=== PATIENT | male | born 1970 | race Caucasian/White ===

== ENCOUNTER 2023-02-14 07:17 | Outpatient (OUT) | payer BC, SELFPAY ==
[2023-02-14 07:39] LABS: Basophils Absolute Auto 0.1 10^3/uL (0.0-0.1); Basophils Percent Auto 1.4 % (0.2-2.0); Eosinophils Absolute Auto 0.6 10^3/uL (0.0-0.7); Eosinophils Percent Auto 7.4 % (0.9-7.0); Hematocrit 40.6 % (42.0-54.0); Hemoglobin 13.8 g/dL (14.0-18.0); Immature Granulocytes Abs Auto 0.02 10^3/uL (0.00-0.03); Immature Granulocytes Pct Auto 0.3 % (0.0-0.5); Lymphocytes Percent Auto 40.5 % (20.5-60.0); Mean Corpuscular Hemoglobin 30.9 pg (25.9-34.0); Mean Platelet Volume 10.4 fL (9.5-13.5); Monocytes Absolute Auto 0.6 10^3/uL (0.3-0.8); Monocytes Percent Auto 7.6 % (1.7-12.0); Neutrophils Absolute Auto 3.2 10^3/uL (1.4-6.5); Neutrophils Percent Auto 42.8 % (43.0-75.0); Platelet Count 189 10^3/uL (150-450); Red Blood Count 4.46 10^6/uL (4.70-6.10); Red Cell Distribution Width 12.4 % (11.0-15.0); White Blood Count 7.4 10^3/uL (4.0-11.0)
[2023-02-14 07:58] LABS: Alanine Aminotransferase 30 U/L (16-63); Albumin Globulin Ratio 1.1; Albumin Level 3.9 g/dL (3.4-5.0); Alkaline Phosphatase 79 U/L (46-116); Aspartate Amino Transferase 20 U/L (15-37); BUN Creatinine Ratio 14.5; Bilirubin Total 0.6 mg/dL (0.2-1.0); Calcium 9.6 mg/dL (8.5-10.1); Carbon Dioxide 27.3 mmol/L (21.0-32.0); Chloride 104 mmol/L (98-107); Cholesterol 215 mg/dL (<=200); Estimated GFR (African America >60 (>=60); Estimated GFR (Non-African Ame 57 (>=60); Globulin 3.7 g/dL; Glucose 92 mg/dL (74-106); HDL Cholesterol 36 mg/dL (40-60); Potassium 4.3 mmol/L (3.5-5.1); Sodium 140 mmol/L (136-145); Total Protein 7.6 g/dL (6.4-8.2); Triglycerides 367 mg/dL (<=150); VLDL CHOLESTEROL 73.4 mg/dL
[2023-02-16 07:08] LABS: QuantiFERON-TB Gold Plus Negative (Negative)
== END 2023-02-14 07:18 | disposition home or self-care (01) ==
LOC: LAB 07:22
PROVIDERS: PCP Family Medicine
DX: L40.0 Psoriasis vulgaris (principal)
CPT/HCPCS: 36415; 80053; 80061; 85025; 86480

== ENCOUNTER 2023-02-24 07:49 | Outpatient (OUT) | payer BC, SELFPAY ==
[2023-02-24 08:38] LABS: Anion Gap 10.5; BUN Creatinine Ratio 13.8; Calcium 8.5 mg/dL (8.5-10.1); Carbon Dioxide 26.8 mmol/L (21.0-32.0); Chloride 103 mmol/L (98-107); Estimated GFR (African America >60 (>=60); Estimated GFR (Non-African Ame >60 (>=60); Glucose 97 mg/dL (74-106); Potassium 4.3 mmol/L (3.5-5.1); Sodium 136 mmol/L (136-145)
== END 2023-02-24 07:50 | disposition home or self-care (01) ==
LOC: LAB 07:50
PROVIDERS: PCP Family Medicine; Visit Provider Family Medicine
DX: N28.9 Disorder of kidney and ureter, unspecified (principal)
CPT/HCPCS: 36415; 80048

== ENCOUNTER 2024-12-07 07:32 | Outpatient (OUT) | payer OTHER, SELFPAY ==
--- OUTSIDE RECORDS SUMMARY | 2024-04-25 05:33 | XMS_ITS ---
Author Organization [facility] in [place] Address [address] [place] [address] Care Team Providers Care Automatic Shirring Machine Operator Name Role Phone Silas Wright Primary Care Provider REASON FOR VISIT ear draining Medications Medication SIG (Take, Route, Frequency, Duration) Notes Start Date End Date Status Yzogrwlz-Ekrmyhokw-BU 3.5-75872-3 4 drops into affected ear Otic Three times a day 04/01/2024 Active Ciprofloxacin HCl 500 MG 1 tablet Orally every 12 hrs for 10 days 04/01/2024 Active Encounters Encounter Location Date Provider Diagnosis [address] [place] [address] 04/25/2024 Silas Wright Otitis externa H60.9 0 Assessments Encounter Date Diagnosis (ICD Code) Assessment Notes Treatment Notes Treatment Clinical Notes Section Notes 04/25/2024 Otitis externa (ICD-10 - H60.90) Plan Of Treatment Medication Medication Name Sig Start Date Stop Date Notes Xhfxzcpr-Cbgogdayj-PB 3.5-02351-0 4 drops into affected ear Otic Three times a day 04/01/2024 Ciprofloxacin HCl 500 MG 1 tablet Orally every 12 hrs for 10 days 04/01/2024 Progress Notes * Guy WILLS BDOB:1970 (53 yo M)Acc No.[id number]:04/25/2024 Patient: Guy CHAVES :1970 A ge:53 Y S ex:Male Address:[address] [address] * Refills Refill Wekfgqwj-Mvoskigrl-RF Suspension, 3.5-41246-2, Otic, 3 ml, 4 drops into affected ear, Three times a day Refill Ciprofloxacin HCl Tablet, 500 MG, Orally, 20 Tablet, 1 tablet, every 12 hrs, 10 days * true * Date: Generated for Andrew brink/Neli/Imelda on: 0 12/07/2024 07:36 AM EDT
--- OUTSIDE RECORDS SUMMARY | 2024-07-05 10:16 | XMS_ITS ---
Author Organization [facility] in [place] Address [address] [place] [address] Care Team Providers Care Covered Buckle Assembler Name Role Phone Silas Wright Primary Care Provider REASON FOR VISIT ear drainage Medications Medication SIG (Take, Route, Frequency, Duration) Notes Start Date End Date Status Brnfvihj-Zvzaxepnv-PZ 3.5-12591-3 4 drops into affected ear Otic Three times a day 04/01/2024 Active Encounters Encounter Location Date Provider Diagnosis [facility] [address] [facility] [place] [address] 07/05/2024 Silas Wright Otitis externa H60.9 0 Assessments Encounter Date Diagnosis (ICD Code) Assessment Notes Treatment Notes Treatment Clinical Notes Section Notes 07/05/2024 Otitis externa (ICD-10 - H60.90) Plan Of Treatment Medication Medication Name Sig Start Date Stop Date Notes Uiamlbak-Crminhjdd-CY 3.5-47054-7 4 drops into affected ear Otic Three times a day 04/01/2024 Progress Notes * Guy WILLS BDOB:1970 (53 yo M)Acc No.[id number]:07/05/2024 Patient: Jessica Guy CHAMBERLAIN :1970 A ge:53 Y S ex:Male Address:[address] [place] [address] * Refills Refill Mhmnrbfh-Pmghqmmzv-QU Suspension, 3.5-23202-3, Otic, 3 ml, 4 drops into affected ear, Three times a day * true * Date: Generated for Andrew brink/Neli/Imelda on: 0 12/07/2024 07:36 AM EDT
--- OUTSIDE RECORDS SUMMARY | 2024-07-30 04:15 | XMS_ITS ---
Author Organization [facility] in [place] Address [address] [place] [address] Care Team Providers Care Educational Psychology Teacher Name Role Phone Silas Wright Primary Care Provider Allergies Allergen (clinical drug ingredient) Drug/Non Drug Allergy documented on EMR Reaction Allergy Type Onset Date Status amoxicillin Amoxicillin hives Drug Allergy Act isidoro REASON FOR VISIT left ear drainage- night and day, Sometimes can barely hear out of the right ear- said dries up in there Medications Medication SIG (Take, Route, Frequency, Duration) Notes Start Date End Date Status Viagra 100 MG 1 tablet as needed O rally Once a day for 30 day(s) 12/29/2022 Active Sotyktu 6 MG 1 tablet Orally Once a day Active Hydrocortisone-Acetic Acid 1-2 % 5 drops into affected ear Otic Three times a day for 10 days 07/30/2024 Active Cefdinir 300 MG 2 capsule Orally onc e a day for 10 days 07/30/2024 Active Social History Tobacco Use: Social History Observation Description Date Details (start date - stop date) Former Smoker 05/08/1989 - 05/08/2012 Tobacco Use/Smoking Question Answer Notes Patient is a former smoker When did you start smoking? 05/08/1989 When did you stop smoking? 05/08/2012 How long has it been since you last smoked? > 10 years Vital Signs Temperature 97.8 degrees Fahrenheit 07/31/19 25 Blood pressure systolic 122 mm Hg 07/31/19 25 Blood pressure diastolic 86 mm Hg 025 Height 72 in 07/30/2024 Weight 215.0 lbs 07/30/2024 BMI 29.16 kg/m2 07/30/2024 Encounters Encounter Location Date Provider Diagnosis [facility] [address] [facility] [place] [address] 07/30/2024 Silas Wright Psoriasis, unspecifi ed L40.9 Assessments Encounter Date Diagnosis (ICD Code) Assessment Notes Treatment Notes Treatment Clinical Notes Section Notes 07/30/2024 Psoriasis, unspecified (ICD-10 - L40.9) Plan Of Treatment Medication Medication Name Sig Start Date Stop Date Notes Hydrocortisone-Acetic Acid 1 -2 % 5 drops into affected ear Otic Three times a day for 10 days 07/30/2024 Cefdinir 300 MG 2 capsule Orally onc e a day for 10 days 07/30/2024 Progress Notes * Guy WILLS BDOB:1970 (53 yo M)Acc No.[id number]:07/30/2024 Progress Note Patient: Guy CHAVES Provider: Tracey Wright ([facility])MD :1970 A ge:53 Y S ex:Male Date:07/30/2024 Address:[address] [place] [address] [id number] Check In:08:07 AM ESTCheck O ut:08:29 AM EST Subjective: * Chief Complaints: * L eft ear drainage- night and daySometimes can barely hear out of the right ear- said dries up in there * HPI: G eneral: R ear - some pain - more itchign - some drainge. D epression Screening: PHQ-2 (2015 Edition) L ittle interest or pleasure in doing things??Not at all F eeling down, depressed, or hopeless? N ot at all T otal Score 0 * Active Problem List E78.1 Pure hyperglyceridem ia Modified On:11/02/2022/U Status:confirmed E78.00 Pure hypercholestero lemia, unspecified Modified On:11/02/2022U Status:confirmed M17.11 Unilateral primary o steoarthritis, right knee Modified On:11/02/2022/U Status:confirmed F52.4 Premature ejaculatio n Modified On:12/29/2022 Status:confirmed L40.9 Psoriasis, unspecifi ed Modified On:11/02/2022 Status:confirmed M50.90 Cervical disc disord er, unspecified, unspecified cervical region Modified On:11/02/2022 Status:confirmed F32.A Depression, unspecif ied Modified On:11/02/2022 Status:confirmed L30.9 Dermatitis, unspecif ied Modified On:11/02/2022 Status:confirmed J01.90 Acute sinus infectio n Modified On:11/23/2022 Status:confirmed M77.8 Elbow tendonitis Modified On:12/29/2022 Status:confirmed N52.9 Impotence Modified On:12/29/2022 Status:confirmed J01.90 Acute sinusitis Modified On:03/11/2024 Status:confirmed H60.90 Otitis externa Modified On:04/01/2024 Status:confirmed * Medical History: * Surgical History: T otal Hip Replacement- Left 08/2019left inguinal hernia 06/1997 * Hospitalization/Major Diagno stic Procedure: D enies Past Hospitalization * Family History: F ather: 55 yrs, cancer, diagnosed with Other malignant neoplasm of unspecified site.?Mother: , Lung cancer, diagnosed with Other malignant neoplasm of unspecified site. Brother(s): alive. S ister(s): alive. S on(s): alive. 4 brother(s) , 1 sister(s) - healthy. 2 son(s) - healthy. . 2 brotheres cancer. * Social History: T obacco Use: T obacco Use/Smoking P atient is a f ormer smoker W hen did you start smoking? 0 05/08/1989 W hen did you stop smoking? 0 05/08/2012 H ow long has it been since you last smoked??> 10 years * Medications: T akingSotyktu(Deucravacitinib) 6 MG Tablet 1 tablet Orally Once a day Viagra(Sildenafil Citrate) 100 MG Tablet 1 tablet as needed Orally Once a day Taking Sotyktu(Deucravacitinib) 6 MG Tablet 1 tablet Orally Once a day Taking Viagra(Sildenafil Citrate) 100 MG Tablet 1 tablet as needed Orally Once a day DiscontinuedCiprofloxacin HCl 500 MG Tablet 1 tablet Orally every 12 hrs Amhsvfoe-Odtlrwjxk-UR 3.5-15876-9 Suspension 4 drops into affected ear Otic Three times a day Medication List reviewed and reconciled with the patientDiscontinued Ciprofloxacin HCl 500 MG Tablet 1 tablet Orally every 12 hrs Discontinued Zrzgxgaa-Gkprfooml-FM 3.5-08945-1 Suspension 4 drops into affected ear Otic Three times a day Medication List reviewed and reconciled with the patient * Allergies: A moxicillin: hives - Allergyno[Allergies Verified] Objective: * Vitals: W t:215.0lbs, Ht: 72 in, BP:122/86mm Hg, Temp:97.8F, BMI:29.16Index, Ht-cm: 182.88 cm, Wt-k.52 kg. * Examination: A bdomen Exam:: R ALYSSA BIlate eczema in canals. Assessment: * Assessment: 1. P soriasis, unspecified - L40.9 (Primary) Plan: * Treatment: * Procedure Codes: * Preventive Medicine: Screenings/Counseling: B [facility] Above Normal BMI Follow-up D ietary management education, guidance, and counseling * * Sign off status: Completed Visit Status: C HK (Check Out) true * Provider: Tracey Wright ([facility])MD Date: 0 07/30/2024 Generated for Andrew brink/Neli/eTransmitting on: 0 12/07/2024 07:37 AM EDT History and Physical Notes * HPI (History of Present Illness) Category Sub-Category Detail Notes Category Not es General R ear - some pain - more itchign - some drainge Depression Screening PHQ-2 (2015 Edition) Little interest or pleasure in doing things?: Not at all Feeling down, depressed, or hopeless?: N ot at all Total Score: 0 Examination Category Sub-Category Detail Notes Category Not es Abdomen Exam: R ALYSSA BIlate eczema in canals
--- OUTSIDE RECORDS SUMMARY | 2024-12-07 07:37 | XMS_ITS | Patient Health Record ---
Author Organization The [facility] in [place] Address [address] [place] [address] Care Team Providers Care Analysis Intern Name Role Phone Silas Wright Primary Care Provider Allergies Allergen (clinical drug ingredient) Drug/Non Drug Allergy documented on EMR Reaction Allergy Type Onset Date Status amoxicillin Amoxicillin hives Drug Allergy Act isidoro Reason For Referral No Information Medications Medication SIG (Take, Route, Frequency, Duration) Notes Start Date End Date Status Viagra 100 MG 1 tablet as needed O rally Once a day for 30 day(s) 12/29/2022 Active Sotyktu 6 MG 1 tablet Orally Once a day Active Cefdinir 300 MG 2 capsule Orally onc e a day for 10 days 07/30/2024 Active Hydrocortisone-Acetic Acid 1-2 % 5 drops [...] since you last smoked? > 10 years Problems Problem Type SNOMED Code ICD Code Onset Dates Problem Status W/U Status Risk Notes Problem 891986543 Pure hyperglyceridemia (E78.1) Active confirmed Problem 75855356 Premature ejaculation (F52.4) Active confirmed Problem 22305073 Dermatitis, unspecified (L30.9) Active confirmed Problem 7529785 Psoriasis, unspecified (L40.9) Active confirmed Problem 267794516909599 Unilateral prima ry osteoarthritis, right knee (M17.11) Active confirmed Problem 382597876 Cervical disc disorder, unspecified, unspecified cervical region (M50.90) Active confirmed Problem Acute sinusitis (73253289) Acute sinusitis (J01.90) Active confirmed Problem Otitis externa (7257905) Otitis externa (H60.90) Active confirmed Problem Acute sinusitis (20216154) Acute sinus infection (J01.90) Active confirmed Problem Impotence (N52.9) Active confirmed Problem Enthesopathy (22356885) Elbow tendonitis (M77.8) Active confirmed Problem 67349775 Pure hypercholesterolemi a, unspecified (E78.00) Active confirmed Problem 940096635 Depression, unspecified (F32.A) Active confirmed Vital Signs Temperature 97.8 degrees Fahrenheit 07/30/2024 Blood pressure diastolic 86 mm Hg 07/30/2024 Height 72 in 07/30/2024 Blood pressure systolic 122 mm Hg 07/30/2024 Weight 215.0 lbs 07/30/2024 BMI 29.16 kg/m2 07/30/2024 Encounters Encounter Location Date Provider Diagnosis [address] [address] 03/11/2024 Silas Hoy Acute sinusitis J01. [address] [address] 04/01/2024 Silas Hoy Otitis externa H60.[address] [address] 07/30/2024 Silas Hoy Psoriasis, unspecifi ed L40.[address] [address] 04/25/2024 Silas Hoy Otitis externa H60.[address] [address] 07/05/2024 Silas Hoy Otitis externa H60.9 0 Assessments Encounter Date Diagnosis (ICD Code) Assessment Notes Treatment Notes Treatment Clinical Notes Section Notes 03/11/2024 Acute sinusitis (ICD-10 - J01.90) 04/01/2024 Otitis externa (ICD-10 - H60.90) 07/30/2024 Psoriasis, unspecified (ICD-10 - L40.9) 04/25/2024 Otitis externa (ICD-10 - H60.90) 07/05/2024 Otitis externa (ICD-10 - H60.90) Plan Of Treatment Pending Test Test Name Order Date PROF CHEM 8 (BAS METB) 02/14/2023 Insurance Providers Payer Name Payer Address Payer Phone Subscriber Number Group Number Insured Name Patient Relationship to Insured Coverage Start Date Coverage End Date [facility] [address] [address] [place] [address] [id number] Guy Wills Self - patient is the insured Medications Administered Medication Instructions Date of Administration Dosage Notes Dexamethasone, 4mg/mL 12/29/2022 12 mg 12n mg Ketorolac Tromethamine 12/29/2022 60 mg 60 Medical (General) History Medical History History ICD Code Covid-19 Virus Fracture- Right Wrist Surgical History Surgery Date(Month/Year) Total Hip Replacement- Left 08/2019 left inguinal hernia 06/1997
--- OUTSIDE RECORDS SUMMARY | 2024-12-07 07:37 | XMS_ITS | CCD ---
Author Organization [facility] Care Team Providers Care Blower Operator Name Role Phone LaJd Unavailable Vahid Parker Unavailable BALDOEMRO, DR SWEENEY Primary Care Unavailable PAULY, DR SWEENEY Admitting Unavailable PAULY, DR SWEENEY Attending Unavailable HOY, DR SWEENEY Consulting Unavailable HOY, DR SWEENEY Primary Care Unavailable ARTURO, LUCIA Admitting Unavailable ARTURO, LUCIA Attending Unavailable ARTURO, LUCIA Consulting Unavailable BALDOMERO, DR SWEENEY Primary Care Unavailable HOY, DR SWEENEY Admitting Unavailable HOY, DR SWEENEY Attending Unavailable HOY, DR SWEENEY Consulting Unavailable HOY, DR SWEENEY Primary Care Unavailable MISC, DR LAUGHLIN Admitting Unavailable MISC, DR LAUGHLIN Attending Unavailable MISC, DR LAUGHLIN Consulting Unavailable PAULY, DR SWEENEY Consulting Unavailable PAULY, DR SWEENEY Primary Care Unavailable HOY, DR SWEENEY Admitting Unavailable HOY, DR SWEENEY Attending Unavailable Allergies Allergy Classification Reported Allergen(s) Allergy Type Date of Onset Reaction(s) Facility (5 sources) Diclofenac Drug Allergy 4 Unknown, Unknown Reaction [facility] (1 source) Penicillin Drug Allergy unknown [employer] Other (2 sources) Penicillins Allergy to substance 4 Unknown Reaction, unknown childhood [facility] Medications Current Medications Medication Drug Class(es) Dates Sig (Normalized) Sig (Original) clindamycin 300 mg oral capsule (1 source) Lincosamide Antibacterial Start: 04-12-2023 take 2 capsules by mouth every hour Clindamycin HCl 300 MG 2 capsules Orally 1 hour prior to procedure for 1 days Apr, Active clobetasol propionate 0.5 mg/ml topical lotion (6 sources) Corticosteroid Olux 0.05 % 1 application Externally Twice a day Active Clobex 0.05 % 1 application Externally Twice a day Active Deucravacitinib (2 sources) Start: 01-14-2024 take 1 tablet by mouth once daily Deucravacitinib (Sotyktu) 6 mg tablet Active 6 MG PO Daily January 14, 2024 12:00am meloxicam 15 mg oral tablet (5 sources) Nonsteroidal Anti-inflammatory Drug Start: 07-28-2021 take 1 tablet by mouth every twenty-four hours Meloxicam 15 MG 1 tablet Orally Once a day for 30 day(s) Feb, Active Completed/Discontinued Medications Medication Drug Class(es) Dates Sig (Normalized) Sig (Original) azithromycin 250 mg oral tablet (2 sources) Macrolide Antimicrobial Start: 01-14-2024 End: 08-10-2024 Azithromycin 250 mg tablet Discontinued 0 PO .COMPLEX January 14, 2024 12:00am August 10, 2024 9:05am For 250 mg dose pack: take 500 mg today (day 1), then 250 mg for 4 days (days 2-5) PO Start: 01-14-2024 Azithromycin A ctive 0 PO .COMPLEX January 14, 2024 12:00am For 250 mg dose pack: take 500 mg today (day 1), then 250 mg for 4 days (days 2-5) PO Vwfyolrqwjtqhke-Prwmmblpl-Rv (Bromfed Dm) 2-30-10 mg/5 mL syrup (2 sources) Start: 01-14-2024 End: 08-10-2024 take 1 mL by mouth every four to six hours as needed Knltewujhinranw-Ynapfbaio-Qo (Bromfed Dm) 2-30-10 mg/5 mL syrup Discontinued 5 ML PO EVERY 4-6 HOURS as needed for sinus symptoms 118 January 14, 2024 12:00am August 10, 2024 9:05am Start: 01-14-2024 take 1 mL by mouth every four to six hours Oxelfilnhrhlkat-Phpkfsbqm-In (Bromfed Dm ) 2-30-10 mg/5 mL syrup Active 5 ML PO EVERY 4-6 HOURS 118 January 14, 2024 12:00am methylPREDNISolone 4 mg oral tablet (2 sources) Corticosteroid Start: 01-14-2024 End: 08-10-2024 take 1 tablet by mouth once Methylprednisolone (Medrol (Ed)) 4 mg tablets,dose pack Discontinued 0 PO per package directions January 14, 2024 12:00am August 10, 2024 9:05am PO PER PKG DIR traMADol hydrochloride 50 mg oral tablet (2 sources) Opioid Agonist Start: 03-10-2020 End: 01-14-2024 take 1 tablet by mouth once daily in the morning as needed for pain Tramadol 50 mg tablet Discontinued 50 MG PO Every morning as needed for Pain March 10, 2020 1:00am January 14, 2024 9:22am 0.5 ml ustekinumab 90 mg/ml prefilled syringe (5 sources) Interleukin-12 Antagonist, Interleukin-23 Antagonist Start: 03-10-2020 End: 01-14-2024 Ustekinumab (Stelara) 45 mg/0.5 mL syringe Discontinued 45 MG SUBCUT EVERY 3 MONTHS March 10, 2020 1:00am January 14, 2024 9:22am Stelara 45 MG/0. 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] Chronic Other connective tissue disease (3 sources) History of repair of hip joint; Translations: [Presence of left artificial hip joint] Chronic Other connective tissue disease (1 source) Presence of left artificial hip joint Onset: 2 Resolved: 2 Chronic Other connective tissue disease (2 sources) History of total hip arthroplasty; Translations: [Presence of unspecified artificial hip joint] 04-19-2023 Chronic Comment on above: Postop day 1 status post left total hip replacementContinue current therapyPosterior hip precautions with weightbearing as toleratedOkay for dischargeFollow-up in 2 weeks as scheduledProblem List clean-up per request of Phys. EHR Cmte Other connective tissue disease (1 source) Trochanteric bursitis, left hip Episodic Other inflammatory condition of skin (4 sources) Psoriasis vulgaris; Translations: [PSORIASIS VULGARIS] Onset: 2 Chronic Other inflammatory condition of skin (1 source) Other psoriatic arthropathy; Translations: [OTHER PSORIATIC ARTHROPATHY] Onset: 2 Chronic Other nervous system disorders (3 sources) Chronic pain; Translations: [Other chronic pain] Chronic Other nervous system disorders (1 source) Other chronic pain Chronic Other upper respiratory infections (3 sources) Sinusitis; Translations: [Chronic sinusitis, unspecified] 01-14-2024 Chronic Other upper respiratory infections (5 sources) Acute sinusitis, unspecified; Translations: [Acute pharyngitis, unspecified] Onset: 2 Episodic Spondylosis; intervertebral disc disorders; other back problems (4 sources) Lumbar spondylosis; Translations: [Other spondylosis with radiculopathy, lumbar region] Chronic Spondylosis; intervertebral disc disorders; other back problems (3 sources) Low back pain; Translations: [Radiculopathy, lumbar region] Onset: 2 Resolved: 2 Episodic Unclassified (4 sources) CONTACT W/AND (SUSP) EXPOS COVID-19; Translations: [CONTACT W/AND (SUSP) EXPOS COVID-19] Onset: 2 Viral infection (1 source) COVID-19; Translations: [COVID-19] Onset: 2 Past or Other Problems Problem Classification Problem Date Documented Da te Episodic/Chronic Other screening for suspected conditions (not mental disorders or infectious disease) (4 sources) Abnormal results of kidney function studies; Translations: [ABNORM RESULTS KIDNEY FUNCTION STDY] Onset: 04-22-2021 Episodic Other upper respiratory disease (1 source) Other specified disorders of nose and nasal sinuses; Translations: [OTH SPEC D/O NOSE NASAL SINUSES] Onset: 05-12-2021 Episodic Unclassified (1 source) CONTACT W/AND (SUSP) EXPOS COVID-19; Translations: [CONTACT W/AND (SUSP) EXPOS COVID-19] Onset: 05-14-2021 Results Test Name Value Interpretation Reference Range [facility] SARS-CoV-2 (COVID-19) RNA ELKE+probe Ql (Unsp spec) Not detected Normal NOT DETECTED [facility] Comment on above: Result Comment: This test is not yet approved or cleared by the [place] FDA. When there are no FDA-approved or cleared tests available, and other criteria are met, FDA can make tests available under an emergency access mechanism called an Emergency Use Authorization (EUA). The EUA for this test is supported by the Guest Services Manager of Health and Human Service's (HHS's) declaration that circumstances exist to justify the emergency use of in vitro diagnostics for the detection and/or diagnosis of the virus that causes COVID-19. This EUA will remain in effect (meaning this test can be used) for the duration of the COVID-19 declaration justifying emergency of IVDs, unless it is terminated or revoked by FDA (after which the test may no longer be used). When diagnostic testing is negative, the possibility of a false negative should be considered in the context of a patient's recent exposures and the presence of clinical signs and symptoms consistent with SARS-CoV-2. Performed By: #### C VDTB #### [facility] [address] [place] [address] Dr. Hyacinth Dial INFLUENZA A AND B [facility] 03-08 [facility] SEE BELOW Normal [facility] Comment on above: Result Comment: Nega tive for Flu A protein angiten. Infection due to Flu A cannot be ruled out. Flu A angiten in the sample may be below the detection limit of the test. Performed By: #### I NFLUAB #### [facility] [address] [place] [address] Dr. Hyacinth Dial [facility] SEE BELOW Normal [facility] Comment on above: Result Comment: Nega tive for Flu B protein antigen. Infection due to Flu B cannot be ruled out. Flu B antigen in the sample may be below the detection limit of the test. Performed By: #### I NFLUAB #### [facility] [address] [place] [address] Dr. Hyacinth Dial INFLUENZA A AG Negative Normal NEGATIVE SEE COMMENT [facility] Comment on above: Performed By: #### I NFLUAB #### [facility] [address] [place] [address] Dr. Hyacinth Dial INFLUENZA B AG Negative Normal NEGATIVE SEE COMMENT [facility] Comment on above: Performed By: #### I NFLUAB #### [facility] [address] [place] [address] Dr. Hyacinth Dial INTERNAL CONTROLS Within Normal Limits Normal Wi thin Normal Limits [facility] Comment on above: Performed By: #### I NFLUAB #### [facility] [address] [place] [address] Dr. Hyacinth Dial QUANTIFERON TB GOLD PLUSon 0 02-03-2022 QuantiFERON Criteria Comment Normal [facility] Comment on above: Result Comment: Hal tiFERON-TB Gold Plus is a qualitative indirect test for M tuberculosis infection (including disease) and is intended for use in conjunction with risk assessment, radiography, and other medical and diagnostic evaluations. The QuantiFERON-TB Gold Plus result is determined by subtracting the Nil value from either TB antigen (Ag) value. The Mitogen tube serves as a control for the test. Performed By: #### Q NTTB #### [facility] [address] [place] [address] Dr. Hyacinth Dial QuantiFERON Incubation Incubation performed. Normal [facility] Comment on above: Performed By: #### Q NTTB #### [facility] [address] [place] [address] Dr. Hyacinth Dial QuantiFERON Mitogen Value >10.00 Normal [facility] Comment on above: Performed By: #### Q NTTB #### [facility] [address] [place] [address] Dr. Hyacinth Dial QuantiFERON Nil Value 0.06 IU/mL Normal [facility] Comment on above: Performed By: #### Q NTTB #### [facility] [address] [place] [address] Dr. Hyacinth Dial QuantiFERON TB1 Ag Value 0.09 IU/mL Normal [facility] Comment on above: Performed By: #### Q NTTB #### [facility] [address] [place] [address] Dr. Hyacinth Dial QuantiFERON TB2 Ag Value 0.11 IU/mL Normal [facility] Comment on above: Performed By: #### Q NTTB #### [facility] [address] [place] [address] Dr. Hyacinth Dial QuantiFERON-TB Gold Plus Negative Normal Negative [facility] Comment on above: Result Comment: No r esponse to M tuberculosis antigens detected. Infection with M tuberculosis is unlikely, but high risk individuals should be considered for additional testing (ATS/IDSA/CDC Clinical Practice Guidelines, 2017). The reference range is an Antigen minus Nil result of <0.35 IU/mL. Chemiluminescence immunoassay methodology Performed By: #### Q NTTB #### [facility] [address] [place] [address] Dr. Hyacinth Dial CBC AUTO DIFFon 02-01-2022 BASO # 0.1 103/ul Normal 0.0-0.1 [facility] Comment on above: Performed By: #### C BC #### [facility] [address] [place] [address] Dr. Hyacinth Dial Basophils/100 WBC (Bld) 1.1 % Normal 0.2-2.0 [facility] Comment on above: Performed By: #### C BC #### [facility] [address] [place] [address] Dr. Hyacinth Dial EO # 0.4 103/ul Normal 0.0-0.7 [facility] Comment on above: Performed By: #### C BC #### [facility] [address] [place] [address] Dr. Hyacinth Dial Eosinophils/100 WBC (Bld) 5.7 % Normal 0.9-7.0 [facility] Comment on above: Performed By: #### C BC #### [facility] [address] [place] [address] Dr. Hyacinth Dial Erythrocyte distribution width (RBC) [Ratio] 11.9 % Normal 11.0-15.0 [facility] Comment on above: Performed By: #### C BC #### [facility] [address] [place] [address] Dr. Hyacinth Dial Hematocrit (Bld) [Volume fraction] 41.1 % Critically low 42.0-54.0 [facility] Comment on above: Performed By: #### C BC #### [facility] [address] [place] [address] Dr. Hyacinth Dial Hemoglobin (Bld) [Mass/Vol] 13.8 g/dL Critically low 14.0-18.0 [facility] Comment on above: Performed By: #### C BC #### [facility] [address] [place] [address] Dr. Hyacinth Dial IG # 0.02 10e3/ul Normal 0.00-0.03 [facility] Comment on above: Performed By: #### C BC #### [facility] [address] [place] [address] Dr. Hyacinth Dial IG % 0.3 % Normal 0.0-0.5 [facility] Comment on above: Performed By: #### C BC #### [facility] [address] [place] [address] Dr. Hyacinth Dial LYMPH # 3.1 103/ul Normal 1.2-3.8 [facility] Comment on above: Performed By: #### C BC #### [facility] [address] [place] [address] Dr. Hyacinth Dial Lymphocytes/100 WBC (Bld) 42.5 % Normal 20.5-60.0 [facility] Comment on above: Performed By: #### C BC #### [facility] [address] [place] [address] Dr. Hyacinth Dial MANUAL DIFF REQ NO Normal [facility] Comment on above: Performed By: #### C BC #### [facility] [address] [place] [address] Dr. Hyacinth Dial MCH (RBC) [Entitic mass] 31.2 pg Normal 25.9-34.0 [facility] Comment on above: Performed By: #### C BC #### [facility] [address] [place] [address] Dr. Hyacinth Dial MCHC (RBC) [Mass/Vol] 33.6 g/dL Normal 29.9-35.2 [facility] Comment on above: Performed By: #### C BC #### [facility] [address] [place] [address] Dr. Hyacinth Dial MCV (RBC) [Entitic vol] 92.8 fL Normal 80.0-94.0 [facility] Comment on above: Performed By: #### C BC #### [facility] [address] [place] [address] Dr. Hyacinth Dial MONO # 0.6 103/ul Normal 0.3-0.8 [facility] Comment on above: Performed By: #### C BC #### [facility] [address] [place] [address] Dr. Hyacinth Dial Monocytes/100 WBC (Bld) 8.0 % Normal 1.7-12.0 [facility] Comment on above: Performed By: #### C BC #### [facility] [address] [place] [address] Dr. Hyacinth Dial NEUT # 3.1 103/ul Normal 1.4-6.5 [facility] Comment on above: Performed By: #### C BC #### [facility] [address] [place] [address] Dr. Hyacinth Dial Neutrophils/100 WBC (Bld) 42.4 % Critically low 43.0-75.0 [facility] Comment on above: Performed By: #### C BC #### [facility] [address] [place] [address] Dr. Hyacinth Dial Platelet mean volume (Bld) [Entitic vol] 10.1 fL Normal 9.5-13.5 [facility] Comment on above: Performed By: #### C BC #### [facility] [address] [place] [address] Dr. Hyacinth Dial PLT 213 103/ul Normal 150-450 [facility] Comment on above: Performed By: #### C BC #### [facility] [address] [place] [address] Dr. Hyacinth Dial RBC 4.43 106/ul Critically low 4.70-6.10 [facility] Comment on above: Performed By: #### C BC #### [facility] [address] [place] [address] Dr. Hyacinth Dial WBC 7.3 103/ul Normal 4.0-11.0 [facility] Comment on above: Performed By: #### C BC #### [facility] [address] [place] [address] Dr. Hyacinth Dial LIPID PROFILEon 02-01-2022 CHOL-HDL RATIO NORM SEE BELOW Normal [facility] Comment on above: Result Comment: 3.3 - 4.4 LOW RISK 4.4 - 7.1 AVERAGE RISK 7.1 - 11.0 MODERATE RISK >11.0 HIGH RISK Performed By: #### C MP, LIPID #### [facility] [address] [address] [address] Hyacinth Dial Cholesterol [Mass/Vol] 207 mg/dL Critically high <=200 [facility] Comment on above: Performed By: #### C MP, LIPID #### [facility] [address] [address] [address] Hyacinth Dial Cholesterol in HDL [Mass/Vol] 41 mg/dL Normal 40-60 [facility] Comment on above: Performed By: #### C MP, LIPID #### [facility] [address] [address] [address] Hyacinth Dial Cholesterol in LDL [Mass/Vol] 96.0 mg/dL Normal [facility] Comment on above: Performed By: #### C MP, LIPID #### [facility] [address] [address] [address] Hyacinth Dial Cholesterol.total/ Cholesterol in HDL [Mass ratio] 5.0 {ratio} Normal [facility] Comment on above: Performed By: #### C MP, LIPID #### [facility] [address] [address] [address] Hyacinth Dial HDL NORMAL > or = 60 mg/dl - LOW CARDIOVASCULAR RISK <40 mg/dl - HIGH CARDIOVASCULAR RISK Normal [facility] Comment on above: Performed By: #### C MP, LIPID #### [facility] [address] [address] [address] Hyacinth Dial LDL CALC NORMAL SEE BELOW Normal [facility] Comment on above: Result Comment: <100 mg/dl OPTIMAL 100 - 129 mg/dl NEAR OR ABOVE OPTIMAL 130 - 159 mg/dl BORDERLINE HIGH 160 - 189 mg/dl HIGH >190 mg/dl VERY HIGH Performed By: #### C MP, LIPID #### [facility] [address] [address] [address] Hyacinth Dial Triglyceride [Mass/Vol] 350 mg/dL Critically high <=150 [facility] Comment on above: Performed By: #### C MP, LIPID #### [facility] [address] [address] [address] Hyacinth Dial VLDL CALC 70.0 mg/dL Normal [facility] Comment on above: Performed By: #### C MP, LIPID #### [facility] [address] [place] [address] Dr. Hyacinth Dial PROF 14(COMP METB)on 022 Albumin [Mass/Vol] 4.1 g/dL Normal 3.4-5.0 [facility] Comment on above: Performed By: #### C MP, LIPID #### [facility] [address] [place] [address] Dr. Hyacinth Dial Albumin/Globulin [Mass ratio] 1.2 {ratio} Normal [facility] Comment on above: Performed By: #### C MP, LIPID #### [facility] [address] [place] [address] Dr. Hyacinth Dial ALP [Catalytic activity/Vol] 75 U/L Normal 46-116 [facility] Comment on above: Performed By: #### C MP, LIPID #### [facility] [address] [place] [address] Dr. Hyacinth Dial ALT [Catalytic activity/Vol] 36 U/L Normal 16-63 [facility] Comment on above: Performed By: #### C MP, LIPID #### [facility] [address] [place] [address] Dr. Hyacinth Dial Anion gap [Moles/Vol] 14.3 mmol/L Normal [facility] Comment on above: Performed By: #### C MP, LIPID #### [facility] [address] [place] [address] Dr. Hyacinth Dial AST [Catalytic activity/Vol] 25 U/L Normal 15-37 [facility] Comment on above: Performed By: #### C MP, LIPID #### [facility] [address] [place] [address] Dr. Hyacinth Dial Bilirubin [Mass/Vol] 0.7 mg/dL Normal 0.2-1.0 [facility] Comment on above: Performed By: #### C MP, LIPID #### [facility] [address] [address] [address] Hyacinth Dial Calcium [Mass/Vol] 8.9 mg/dL Normal 8.5-10.1 [facility] Comment on above: Performed By: #### C MP, LIPID #### [facility] [address] [address] [address] Hyacinth Dial Chloride [Moles/Vol] 103 mmol/L Normal 98-107 [facility] Comment on above: Performed By: #### C MP, LIPID #### [facility] [address] [address] [address] Hyacinth Dial CO2 [Moles/Vol] 27.0 mmol/L Normal 21.0-32.0 [facility] Comment on above: Performed By: #### C MP, LIPID #### [facility] [address] [address] [address] Hyacinth Dial Creatinine [Mass/Vol] 1.29 mg/dL Normal 0.70-1.30 [facility] Comment on above: Performed By: #### C MP, LIPID #### [facility] [address] [address] [address] Hyacinth Dial EGFR-AF MACEDONIAN >60 Normal >=60 [facility] Comment on above: Performed By: #### C MP, LIPID #### [facility] [address] [address] [address] Hyacinth Dial EGFR-NON AF MACEDONIAN 58 mL/min/1.73m2 Critically low >=60 [facility] Comment on above: Performed By: #### C MP, LIPID #### [facility] [address] [address] [address] Hyacinth Dial Globulin (S) [Mass/Vol] 3.4 g/dL Normal [facility] Comment on above: Performed By: #### C MP, LIPID #### [facility] [address] [address] [address] Hyaicnth Dial Glucose [Mass/Vol] 97 mg/dL Normal 74-106 [facility] Comment on above: Performed By: #### C MP, LIPID #### [facility] [address] [address] [address] Hyacinth Dial Potassium [Moles/Vol] 4.3 mmol/L Normal 3.5-5.1 [facility] Comment on above: Performed By: #### C MP, LIPID #### [facility] [address] [address] [address] Hyacinth Dial Protein [Mass/Vol] 7.5 g/dL Normal 6.4-8.2 [facility] Comment on above: Performed By: #### C MP, LIPID #### [facility] [address] [address] [address] Hyacinth Dial Sodium [Moles/Vol] 140 mmol/L Normal 136-145 [facility] [facility] Comment on above: Performed By: #### C MP, LIPID #### [facility] [address] [address] [address] Hyacinth Dial Urea nitrogen [Mass/Vol] 17.0 mg/dL Normal 7.0-18.0 [facility] Comment on above: Performed By: #### C MP, LIPID #### [facility] [address] [address] [address] Hyacinth Dial Urea nitrogen/Creatinin e [Mass ratio] 13.2 mg/mg Normal [facility] Comment on above: Performed By: #### C MP, LIPID #### [facility] [address] [address] [address] Hyacinth Dial XR hips BI 4V adulton 2021 XR hips BI 4V adult [facility] [place] [address] XRay Report Signed Patient: Guy Wills MR#: [id number] : 1970 Acct:[id number] Age/Sex: 50 / M ADM Date: 07/28/21 Loc: [facility] Room: Type[facility] Attending Dr: Jd Hilario DO Ordering Provider: Jd Hilario DO Date of Service: 07/28/21 XR/XR hips BI 4V adult: Status post left hip replacement Copies to: Jd Hilario DO ADULT LOWER PELVIS WITH BILATERAL HIPS -3 images CLINICAL HISTORY: Follow-up left hip replacement. Generalized right hip pain. No injury. COMPARISON: 10/09/2020 and 03/17/2020 AP view of the lower pelvis as well as frog-lateral views of both hips were obtained. A left hip prosthesis is again visualized. The hardware appears intact and unchanged from the prior. No fracture, dislocation or bony destruction is seen. The right hip joint space is maintained and there is no significant arthritic change. The soft tissues are unremarkable. XR/XR hips BI 4V adult IMPRESSION: STABLE APPEARANCE OF LEFT HIP REPLACEMENT. NO ACUTE BONY FINDINGS INVOLVING THE RIGHT HIP. Impression dictated by: Tasha Douglas M.D.07/28/2021 10:22 AM Dictation Location: [place] [address] Transcribed By: [facility] 07/28/21 1022 Dictated By: Tasha Douglas MD 07/28/21 1019 Signed By: 07/28/21 1022 [facility] Covid-19 PCR (CVDTB)on SARS-CoV-2 (COVID-19) RNA ELKE+probe Ql (Unsp spec) Detected Critically abnormal NOT DETECTED [facility] Comment on above: Result Comment: This test is not yet approved or cleared by the [place] FDA. When there are no FDA-approved or cleared tests available, and other criteria are met, FDA can make tests available under an emergency access mechanism called an Emergency Use Authorization (EUA). The EUA for this test is supported by the Guest Services Manager of Health and Human Service's (HHS's) declaration that circumstances exist to justify the emergency use of in vitro diagnostics for the detection and/or diagnosis of the virus that causes COVID-19. This EUA will remain in effect (meaning this test can be used) for the duration of the COVID-19 declaration justifying emergency of IVDs, unless it is terminated or revoked by FDA (after which the test may no longer be used). Performed By: #### C VDTB #### [facility] [address] [place] [address] Dr. Hyacinth Dial Covid-19 PCR (CVDTBH)on 04-09 SARS-CoV-2 (COVID-19) RNA ELKE+probe Ql (Unsp spec) Not detected Normal NOT DETECTED [facility] Comment on above: Result Comment: This test is not yet approved or cleared by the [place] FDA. When there are no FDA-approved or cleared tests available, and other criteria are met, FDA can make tests available under an emergency access mechanism called an Emergency Use Authorization (EUA). The EUA for this test is supported by the [place] of Health and Human Service's (HHS's) declaration that circumstances exist to justify the emergency use of in vitro diagnostics for the detection and/or diagnosis of the virus that causes COVID-19. This EUA will remain in effect (meaning this test can be used) for the duration of the COVID-19 declaration justifying emergency of IVDs, unless it is terminated or revoked by FDA (after which the test may no longer be used). When diagnostic testing is negative, the possibility of a false negative should be considered in the context of a patient's recent exposures and the presence of clinical signs and symptoms consistent with SARS-CoV-2. Performed By: #### C VDTBH #### [facility] [address] [place] [address] Dr. Hyacinth Dial PROF CHEM 8 (BAS METB)on Anion gap [Moles/Vol] 12.0 mmol/L Normal [facility] Comment on above: Performed By: #### B MP #### [facility] [address] [place] [address] Dr. Hyaicnth Dial Calcium [Mass/Vol] 9.0 mg/dL Normal 8.4-10.2 [facility] Comment on above: Performed By: #### B MP #### [facility] [address] [place] [address] Dr. Hyacinth Dial Chloride [Moles/Vol] 103 mmol/L Normal 98-107 [facility] Comment on above: Performed By: #### B MP #### [facility] [address] [place] [address] Dr. Hyacinth Dial CO2 [Moles/Vol] 28.0 mmol/L Normal 22.0-30.0 [facility] Comment on above: Performed By: #### B MP #### [facility] [address] [address] [address] Hyacinth Dial Creatinine [Mass/Vol] 1.16 mg/dL Normal 0.66-1.25 [facility] Comment on above: Performed By: #### B MP #### [facility] [address] [address] [address] Hyacinth Dial EGFR-AF MACEDONIAN =60 Normal >=60 [facility] Comment on above: Performed By: #### B MP #### [facility] [address] [address] [address] Hyacinth Dial EGFR-NON AF MACEDONIAN >60 Normal >=60 [facility] Comment on above: Performed By: #### B MP #### [facility] [address] [place] [address] Dr. Hyacinth Dial Glucose [Mass/Vol] 93 mg/dL Normal 74-106 [facility] Comment on above: Performed By: #### B MP #### [facility] [address] [address] [address] Hyacinth Dial Potassium [Moles/Vol] 4.0 mmol/L Normal 3.4-5.0 [facility] Comment on above: Performed By: #### B MP #### [facility] [address] [place] [address] Dr. Hyacinth Dial Sodium [Moles/Vol] 139 mmol/L Normal 137-145 [facility] Comment on above: Performed By: #### B MP #### [facility] [address] [place] [address] Dr. Hyacinth Dial Urea nitrogen [Mass/Vol] 15.0 mg/dL Normal 9.0-20.0 [facility] Comment on above: Performed By: #### B MP #### [facility] [address] [place] [address] Dr. Hyacinth Dial Urea nitrogen/Creatinin e [Mass ratio] 12.9 mg/mg Normal [facility] Comment on above: Performed By: #### B MP #### [facility] [address] [address] [address] Hyacinth Dial MR lumbar spine wo conon MR lumbar spine wo con [facility] Main [place] [address] [place], [place] [id number] MRI Report Signed Patient: Guy Wills MR#: [id number] : 1970 Acct:[id number] Age/Sex: 50 / M ADM Date: 11/24/20 Loc: MR Room: Type: [facility] Attending Dr: Vahid Parker MD Ordering Provider: Vahid Parker MD Date of Service: 11/24/20 MR/MR lumbar spine wo con: Lumbar back pain,M54.5 Copies to: Vahid Parker MD MR lumbar spine wo con 11/24/2020 1:47 PM SIGNS AND SYMPTOMS: Status post left hip replacement. Low back pain intermittently radiating down left leg with numbness and tingling PROTOCOL: Multiplanar multisequence MR images of the lumbar spine were obtained without IV contrast. COMPARISON: Radiographs of the lumbar spine from 10/09/2020 FINDINGS: The bones of the lumbar spine are in anatomic alignment. There is preservation of vertebral body heights. There is disc desiccation and mild disc height loss at L3-L4. Lesser degrees of disc desiccation and disc height loss are noted at L2-L3. Schmorl's node formation is noted in the superior endplate of S1. The marrow signal is within normal limits. The conus terminates at the mid L1 vertebral body level. No epidural or paraspinous fluid collection is appreciated. At T12-L1: There is a normal disc, central canal, and neural foramen. At L1-L2: There is a normal disc, central canal, and neural foramen. At L2-L3: There is a broad-based disc bulge with a slightly more prominent right central and subarticular disc protrusion. There is moderate spinal canal stenosis. There is no significant neural foraminal narrowing. At L3-L4: There is a circumferential disc bulge with facet and ligament flavum degenerative change causing mild narrowing of spinal canal along with mild bilateral neural foraminal narrowing. At L4-L5: There is a circumferential disc bulge with mild facet hypertrophy. There is mild bilateral neural foraminal narrowing with mild spinal canal narrowing. At L5-S1: There is a mild broad-based disc bulge with left greater than right facet hypertrophy. There is mild bilateral neural foraminal narrowing without significant spinal canal stenosis. MR/MR lumbar spine wo con IMPRESSION: At L2-L3: There is a broad-based disc bulge with a slightly more prominent right central and subarticular disc protrusion. There is moderate spinal canal stenosis. There is no significant neural foraminal narrowing. At L3-L4: There is a circumferential disc bulge with facet and ligament flavum degenerative change causing mild narrowing of spinal canal along with mild bilateral neural foraminal narrowing. Lesser degrees of spinal canal or neural foraminal narrowing are noted, as detailed above. Impression dictated by: Lalo Weaver M.D.11/24/2020 4:17 PM Dictation Location: [place] [address] Transcribed By: [facility] 11/24/201616 Dictated By: Lalo Weaver II, MD 11/24/201613 Signed By: 11/24/20 161 Normal [facility] XR hip LT min 2V(w/wo pelvis )*on 10-09-2020 XR hip LT min 2V(w/wo pelvis)* [facility] [place] [address] XRay Report Signed Patient: Guy Wills MR#: [id number] : 1970 Acct:[id number] Age/Sex: 50 / M ADM Date: 10/09/20 Loc: [facility] Room: Type[facility] Attending Dr: Jd Hilario DO Ordering Provider: Jd Hilario DO Date of Service: 10/09/20 XR/XR hip LT min 2V(w/wo pelvis)*: PAIN Copies to: Jd Hilario DO 2 views LEFT hip plain film COMPARISON:03/17/20 HISTORY:Status post LEFT hip arthroplasty No hardware failure loosening. No fracture or dislocation. No soft tissue abnormality. XR/XR hip LT min 2V(w/wo pelvis)* IMPRESSION:Uncomplic ated LEFT hip arthroplasty. Impression dictated by: Jaleel Bee M.D.10/09/2020 9:56 AM Dictation Location: [facility] Transcribed By: MARY 10/09/2056 Dictated By: Jaleel Bee DO 10/09/2056 Signed By: 10/09/2056 [facility] XR lumbar spine AP/LAT/FLX/E XTon 10-09-2020 XR lumbar spine AP/LAT/FLX/EXT [facility] [place] [address] XRay Report Signed Patient: Guy Wills MR#: [id number] : 1970 Acct:[id number] Age/Sex: 50 / M ADM Date: 10/09/20 Loc: [facility] Room: Type[facility] Attending Dr: Jd Hilario DO Ordering Provider: Jd Hilario DO Date of Service: 10/09/20 XR/XR lumbar spine AP/LAT/FLX/EXT: PAIN Copies to: Jd Hilario DO AP with lateral neutral, flexion extension views of the lumbar spine HISTORY: Status post LEFT total hip arthroplasty. Left-sided lower back pain. COMPARISON:None Lumbar lordosis is adequate. No acute lumbar spine fracture is identified. No lumbar listhesis identified. Anterior endplate spurring is present. Lower lumbar hypertrophic facet changes are present. L5-S1 mild disc space narrowing. No hypermobility identified with flexion and extension views. Ather osclerosis. No paraspinal abnormality seen. SI joints are maintained. XR/XR lumbar spine AP/LAT/FLX/EXT IMPRESSION: No hypermobility. Mild lower lumbar degeneration. Impression dictated by: Jaleel Bee M.D.10/09/2020 10:05 AM Dictation Location: [facility] Transcribed By: MARY 10/09/20 1005 Dictated By: Jaleel Bee DO 10/09/20 1003 Signed By: 10/09/20 100 [facility] Vital Signs Date Time Vital Sign Value Performing Clinician Facility 08-10-2024 09:060400 Body height 182.88 cm [facility] 08-10-2024 09:060400 Body mass index (BMI) [Ratio] 29 kg/m2 [facility] 08-10-2024 09:06-0400 Body temperature 98.8 [degF] [facility] 08-10-2024 09:06-0400 Body weight 97.29 kg [facility] 08-10-2024 09:06-0400 Diastolic blood pressure 73 mm[Hg] [facility] 08-10-2024 09:06-0400 Heart rate 101 /min [facility] 08-10-2024 09:06-0400 Respiratory rate 16 /min [facility] 08-10-2024 09:06-0400 SaO2% (BldA) [Mass fraction] 97 % [facility] 08-10-2024 09:06-0400 Systolic blood pressure 107 mm[Hg] [facility] 01-14-2024 09:19-0400 Body height 182.88 cm [facility] 01-14-2024 09:19-0400 Body mass index (BMI) [Ratio] 29 kg/m2 [facility] 01-14-2024 09:19-0400 Body temperature 98.2 [degF] [facility] 01-14-2024 09:19-0400 Body weight 97.18 kg [facility] 01-14-2024 09:19-0400 Diastolic blood pressure 81 mm[Hg] [facility] 01-14-2024 09:19-0400 Heart rate 96 /min [facility] 01-14-2024 09:19-0400 Respiratory rate 18 /min [facility] 01-14-2024 09:19-0400 SaO2% (BldA) [Mass fraction] 94 % [facility] 01-14-2024 09:19-0400 Systolic blood pressure 133 mm[Hg] [facility] 07-28-2021 09:00-0400 Body height 182.88 cm Jd Hilario Other [facility] Other 07-28-2021 09:00-0400 Body mass index (BMI) [Ratio] 26.85 kg/m2 Jd Hilario Other [facility] Other 07-28-2021 09:00-0400 Body weight 89.81 kg Jd Hilario Other [facility] Other Encounters Encounter Date Encounter Type Care Provider Facility Start: 08-10-2024 End: 08-10-2024 ambulatory [facility] Work Phone: Start: 08-10-2024 End: 08-10-2024 Patient encounter procedure [facility] Work Phone: Start: 01-14-2024 End: 01-14-2024 ambulatory [facility] Work Phone: Start: 01-14-2024 End: 01-14-2024 Patient encounter procedure [facility] Work Phone: Start: 04-12-2023 End: 04-12-2023 ambulatory Jd Hilario Other [facility] Other Start: 04-12-2023 Telephone encounter Jd Hilario [facility] Start: 03-08-2022 End: 03-08-[address] PATEL WRIGHT Facility:[facility] Start: 02-28-2022 End: 02-28-2022 ambulatory Vahid Parker Other [facility] Other Start: 02-28-2022 Office outpatient vi sit 25 minutes Vahid Parker [facility] Start: 02-01-2022 End: 02-02-[address] PATEL WRIGHT Facility:[facility] Start: 07-28-2021 End: 07-28-2021 ambulatory Jd Hilario Other [facility] Other Start: 07-28-2021 Office outpatient vi sit 15 minutes Jd Hilario [facility] Start: 05-14-2021 End: 05-14-[address] PATEL WRIGHT Facility:[facility] Start: 05-06-2021 End: 05-06-[address] PATEL WRIGHT Facility:[facility] Start: 04-22-2021 End: 04-23-[address] PATEL WRIGHT Facility:[facility] Plan of Treatment Date Care Activity Detail Author [facility] Payers Date Payer Category Payer Unknown [id number] 1970 Unknown [id number] 1970 Unknown [id number] 1970 Unknown [id number] 1970 Unknown [id number] 1960 [facility] [id number] Private Health Insurance [facility] [id number] Self-pay Self Pay [id number] Social History Date Type Detail Facility Sex Assigned At [facility] Other Start: 03-17-[facility] Start: 1970 Sex Assigned At Male [facility] Start: 08-10-2024 Sex Male (finding) [facility] Medical Equipment Procedure Code Equipment Code Equipment Origin al Text Equipment Identifier Dates Minimally invasive revision of total replacement of hip Coated hip femur prosthesis, modular [id number] FDA Start: 03-17-2020 Minimally invasive revision of total replacement of hip Acetabular shell ()[id number] FDA Start: 03-17-2020 Minimally invasive revision of total replacement of hip Non-constrained polyethylene acetabular liner [id number] FDA Start: 03-17-2020 Minimally invasive revision of total replacement of hip Ceramic femoral head prosthesis ()[id number] [facility] Start: 03-17-2020 Evaluation note 02-28-2022 Note Date & Type Note Facility 02-28-2022 Evaluation note Encounter Date Diagnosis Assessment Notes Feb, Lumbar back pain (ICD-10 - M54.5) Feb, Other spondylosis with radiculopathy, lumbar region (ICD-10 - M47.26) Patient's main complaint is his pain radiating into the anterior and lateral aspect of his left lower extremity. Patient has failed several conservative treatment options. We discussed his lumbar MRI findings in detail, with a disc protrusion and some evidence of spinal stenosis at L2/3. Given the MRI results, as well as location of pain and exam findings, patient is a candidate for a lumbar epidural steroid injection. Risks and benefits of procedure explained to patient; patient verbalizes understanding. Patient will call if he decides to proceed with this. In the meantime we will start him back on Meloxicam 15 mg once daily. Risks and side effects of this medication was discussed in detail with the patient who voiced understanding. Anatomy of spine discussed in detail with patient in regard to patients condition. Feb, Trochanteric bursitis of left hip (ICD-10 - M70.62) Feb, Chronic pain (ICD-10 - G89.29) Feb, Other Above note written by Edward Christie LPN, [employer]. Edited and approved by Dr. Vahid Parker MD. 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 He is doing well in regards to his hip but continues to have some posterior pain with radiation which is concerning for radiculopathy. He has had injections with Dr. Parker before in the past for this. I do believe this is a lumbar issue and not a problem with his hip. We will get him set up with Dr. Parker again for some possible epidural injections. Jul, Lumbar pain (ICD-10 - M54.5) Jul, Left lumbar radiculopathy (ICD-10 - M54.16) Jul, Other See orders for this visit as documented in the electronic medical record. Patient advised that due to current complaints and good response from previous backk injections, I recommend he followup with Dr Anne Parker, patient agreeable with plan. A prescription for anti-inflammat ories was provided with instructions on use. Rx Meloxicam. Patient instructed to followup 3 weeks after injection with Dr Anne Parker [facility] Other History general Narrative - Reported 03-08-2020 Note Date & Type Note Facility 03-08-2020 History general N arrative - Reported Type Medical History psoriasis Medical History high cholesterol Surgical History hernia Surgical History vasectomy Surgical History left hip replacement 03/2020 Hospitalization History see above [facility] Other Evaluation note Note Date & Type Note Facility Evaluation note No Information [facility] Other Evaluation note Note Date & Type Note Facility Evaluation note Diagnosis Onset Date Sinusitis acute [facility] Work Phone: Evaluation note Note Date & Type Note Facility Evaluation note No assessment information availa ble [facility] Work Phone: Summary Purpose Family History Relationship Condition Age at Onset Recorded Date/T river father Malignant neoplasm of brain Unknown father Malignant neoplasm of lung Unknown mother Malignant neoplasm of lung Unknown brother Malignant neoplasm of lung Unknown father Malignant neoplasm Unknown Unknown mother Unknown Malignant neoplasm Unknown Advance Directives Advance Directive Response Recorded Date/ Time Advance Directives No February 26, 2018 6:57am Chief Complaint and Reason for Visit Chief Complaint Earache Reason for Visit Sinusitis Chief Complaint Admit Date headache, congestion, sore throat, earac he August 10, 2024 9:04am Additional Source Comments (unrecognized sect ion and content) No Status Records FoundNo Status Records Found INFORMATION SOURCE (unrecogn ized section and content) DATE CREATED AUTHOR 08/15/2021 [facility] DATE CREATED AUTHOR AUTHOR'S ORGANIZ ATION 03/11/2022 [facility] REASON FOR VISIT (unrecogniz ed section and content) Left Hip PainDR LA REFER HIP PAINdental Care Teams (unrecognized sec tion and content) Team Status: Active Member Role Status Dates Patel Wright MD Primary Care Provider Active Team Status: Inactive Member Role Status Dates Patel Wright MD Primary Care Provider Active Start: January 14, 2024 End: January 14, 2024 Mayelin QUIÑONEZ APRN Attending Provider Active Start: January 14, 2024 End: January 14, 2024 Team Status: Inactive Member Role Status Dates Patel Wright MD Primary Care Provider Active Start: August 10, 2024 End: August 10, 2024 CHUCK Garsia RN [employer]PERATOR HELPER-C Attending Provider Active Start: August 10 End: August 10, 2024 Goals (unrecognized section and content) Goals may be documented in a n alternate section FOR RECORDS PERTAINING TO PATIENTS WHO ARE OR HAVE BEEN ENROLLED IN A CHEMICAL DEPENDENCY/SUBSTANCEABUSE PROGRAM, SOME INFORMATION MAY BE OMITTED. This clinical summary was aggregated from multiple sources. Caution should be exercised in using it in the provision of clinical care. This summary normalizes information from multiple sources, and as a consequence, information in this document may materially change the coding, format and clinical context of patient data. In addition, data may be omitted in some cases. CLINICAL DECISIONS SHOULD BE BASED ON THE PRIMARY CLINICAL RECORDS. [facility] [employer] provides no warranty or guarantee of the accuracy or completeness of information in this document.
[2024-12-07 07:51] LABS: Hematocrit 41.8 % (42.0-54.0); Hemoglobin 14.3 g/dL (14.0-18.0); Immature Granulocytes Abs Auto 0.01 10^3/uL (0.00-0.03); Immature Granulocytes Pct Auto 0.2 % (0.0-0.5); Lymphocytes Absolute Auto 2.9 10^3/uL (1.2-3.8); Mean Corpuscular HGB Conc 34.2 g/dL (29.9-35.2); Mean Corpuscular Hemoglobin 31.5 pg (25.9-34.0); Mean Corpuscular Volume 92.1 fL (80.0-94.0); Platelet Count 182 10^3/uL (150-450); Red Blood Count 4.54 10^6/uL (4.70-6.10); White Blood Count 5.5 10^3/uL (4.0-11.0)
[2024-12-07 08:58] LABS: Alanine Aminotransferase 32 U/L (16-63); Albumin Globulin Ratio 1.0; Albumin Level 3.8 g/dL (3.4-5.0); Alkaline Phosphatase 78 U/L (46-116); Anion Gap 16.8; Aspartate Amino Transferase 24 U/L (15-37); Blood Urea Nitrogen 19.0 mg/dL (7.0-18.0); Calcium 9.0 mg/dL (8.5-10.1); Carbon Dioxide 25.3 mmol/L (21.0-32.0); Chloride 104 mmol/L (98-107); Cholesterol 212 mg/dL (<=200); Estimated GFR (African America >60 (>=60 mL/min/1.73m^2); Estimated GFR (Non-African Ame 58 (>=60 mL/min/1.73m^2); Globulin 3.7 g/dL; Glucose 143 mg/dL (74-106); HDL Cholesterol 37 mg/dL (40-60); Potassium 4.1 mmol/L (3.5-5.1); Sodium 142 mmol/L (136-145); Total Protein 7.5 g/dL (6.4-8.2); Triglycerides 264 mg/dL (<=150); VLDL CHOLESTEROL 52.8 mg/dL
== END 2024-12-07 07:33 | disposition home or self-care (01) ==
PROVIDERS: PCP Family Medicine; Visit Provider Nurse Practitioner
DX: Z79.899 Other long term (current) drug therapy (principal)
CPT/HCPCS: 36415; 80053; 80061; 85025; 86480